=== PATIENT | female | born 1985 | race Caucasian/White ===

== ENCOUNTER 2018-02-26 21:11 | Emergency (ER) | payer SELFPAY ==
[2015-06-21 10:18] VITALS: Wt 117.9 kg
[~2018-02-26 21:11] MED LIST: ACET-1718 PO; CITA-145 PO; FERR325C2 PO; FEXO-72 PO; IBU800 PO; IBUP800T37 PO; LOR5/325 PO; NIFE30TA92 PO; ONDA4TAB PO; PREN-67 PO; PROM-110 PO; ZOLP-350 PO
[2018-02-26] MEDS ORDERED: LIDOCAINE 1% MDV 200 MG/20 ML INFIL ONE (21:35)
[2018-02-26] MEDS ORDERED: DIPHTH/TETANUS/ACEL. PERTUSSIS IM ONLY ONE (21:35)
[2018-02-26 21:36] VITALS: BP 134/91
--- NOTE | 2018-02-26 21:46 | ER Report ---
History and Physical Time Seen By MD: 21:43 Hx. of Stated Complaint: pT TAKING OUT TRASH. BROKEN BOWL SWUNG AROUND AND HIT ACHILLES. 2CM LACERATION. HPI/ROS CHIEF COMPLAINT: 3 cm laceration to the right heel HISTORY OF PRESENT ILLNESS: Patient is a 32-year-old female here with a 3 cm laceration to the heel. Patient reportedly was taking out the trash when she stepped on a broken bowl which caused laceration. Last tetanus vaccination is unknown. Patient declines x-ray imaging. Patient denies further injury at this time. Denies rashes, deformities, weakness, numbness. REVIEW OF SYSTEMS: Constitutional: No fever, no chills. Musculoskeletal: No muscle weakness or pain Skin: No rashes, + 3 cm laceration to right heel. Neurological: No headache, no focal deficits. Allergies: Coded Allergies: Sulfa (Sulfonamide Antibiotics) (Verified Allergy, Mild, ANAPHYLAXIS, ) erythromycin base (Verified Allergy, Mild, GI DISTRESS, 04/08/16) latex (Unverified Allergy, Unknown, RASH, 04/08/16) Home Meds Discontinued Reported Medications Citalopram Hydrobromide (CITALOPRAM HBR) 20 Mg Tablet, 20 MG PO QDAY, #5 TAB 04/08/16 Zolpidem Tartrate (AMBIEN) 10 Mg Tablet, 1 TAB PO QHS, TAB 04/08/16 Fexofenadine Hcl (ALFA ALLERGY) 60 Mg Tablet, 30 MG PO BID 06/20/15 Discontinued Scripts Hydrocodone Bit/Acetaminophen (HYDROCODON-ACETAMINOPHEN 5-325) 1 Each Tablet, 1 EACH PO Q4-6H Y for PAIN, #12 TAB 0 Refills Prov:RE RANDLE MD 04/08/16 Promethazine Hcl (PROMETHAZINE HCL) 25 Mg Tablet, 25 MG PO Q8H Y for NAUSEA/ VOMITING, #20 TAB 0 Refills Prov:RE RANDLE MD 04/08/16 Ondansetron (ZOFRAN ODT) 4 Mg Tab.rapdis, 4 MG PO Q6H Y for NAUSEA/VOMITING, # 20 TAB 0 Refills Prov:RE RANDLE MD 04/08/16 Ibuprofen (IBUPROFEN) 800 Mg Tablet, 1 TAB PO Q8H, #30 TAB Take with food every 8 hours. Prov:SHAYNA MARSHALL MD 06/22/15 Hx Smoking: No Smoking Status: Never Smoker Exposure to Second Hand Smoke?: No Hx Substance Use Disorder: No Constitutional Physical Exam General appearance: Alert no distress. Extremities: No muscle weakness or neurological deficits. Skin: 3 cm simple linear laceration of the heel of the right foot. DIFFERENTIAL DIAGNOSIS: After history and physical exam differential diagnosis was considered for laceration, contusion, abrasion, fracture Medical Decision Making EKG/Imaging Imaging Patient declined x-ray imaging. ED Course/Re-evaluation ED Course Patient is a 33-year-old female here with a 3 cm laceration to her heel which was closed using 4 sutures with prior lidocaine instillation. Patient declined x -ray imaging however after cleaning out the wound no foreign bodies were identified. Tetanus was updated. Patient was well-appearing at time of discharge , hemostasis was achieved. Procedure 3 cm laceration was cleaned and prepped. Lidocaine 1% approximately 3 mL was instilled into the wound margins and the wound was closed using 4 Ethilon sutures. Hemostasis was achieved. Tetanus was updated. Patient was advised to follow-up in 7-10 days for removal. Decision to Disposition Date: Mar 28, 2018 Decision to Disposition Time: 22:35 Depart Departure Latest Vital Signs Impression: Primary Impression: Laceration of foot Condition: Improved Disposition: HOME OR SELF-CARE Referrals: ADRIANA BARTHOLOMEW (PCP) Patient Instructions: Laceration (ED) Additional Instructions: A total of 4 sutures were placed to close the laceration. Please have the sutures removed in 7-10 days. Please return promptly if you develop drainage from the site, surrounding rash, worsening pain or swelling. SONG CHIRINOS DO Feb 26, 2018 21:46
== END 2018-02-26 22:35 | disposition home or self-care (01) ==
LOC: ER 21:29
DX: S91.311A Laceration without foreign body, right foot, initial encounter (principal); W25.XXXA Contact with sharp glass, initial encounter
CPT/HCPCS: 90471; 90715; 99283